=== PATIENT | female | born 1955 | race Caucasian/White ===

== ENCOUNTER 2017-11-18 11:11 | Day surgery (SDC) | payer MEDICAID ==
[2017-11-18 11:33] VITALS: BP 136/99
[2017-11-18] MEDS ORDERED: normal saline 1000ml 1,000 ML IV SCH (11:40)
[2017-11-18] MEDS ORDERED: ONDA4TAB9 SL (12:08)
[2017-11-18] MEDS ORDERED: ESOM20CA PO (12:08)
[2017-11-18] MEDS ORDERED: LISI10TA4 PO (12:08)
[2017-11-18] MEDS ORDERED: FURO40TA4 PO (12:08)
[2017-11-18] MEDS ORDERED: METO5TAB98 PO (12:08)
[2017-11-18] MEDS ORDERED: SENN1TAB5 PO (12:08)
[2017-11-18] MEDS ORDERED: MSC15T PO (12:08)
[2017-11-18] MEDS ORDERED: POTA-82 PO (12:08)
[2017-11-18] MEDS ORDERED: MORP60TA32 PO (12:08)
[2017-11-18] MEDS ORDERED: CARV3.12 PO (12:08)
[2017-11-18] MEDS ORDERED: SCOP1PAT16 TD (12:08)
[2017-11-18 12:15] LABS: BASOPHILS % (AUTO) 0.2 % (0-1); EOSINOPHILS % (AUTO) 0.5 % (0-6); HEMATOCRIT 25.9 % (35.0-45.0); HEMOGLOBIN 8.6 g/dl (12.0-16.0); LYMPHOCYTES # (AUTO) 0.7 X10'3 (1.1-4.8); LYMPHOCYTES % (AUTO) 14.4 % (21-51); MEAN CORPUSCULAR HEMOGLOBIN 32.3 PG (27.0-31.0); MEAN CORPUSCULAR HGB CONC 33.2 % (33.0-36.5); MEAN CORPUSCULAR VOLUME 97.3 FL (78-98); MEAN PLATELET VOLUME 6.6 FL (7.4-10.4); MONOCYTES # (AUTO) 0.6 X10'3 (0-0.9); NEUTROPHILS # (AUTO) 3.5 X10'3 (1.8-7.7); NEUTROPHILS % (AUTO) 71.9 % (42-75); PLATELET COUNT 223 X10'3 (140-440); RED BLOOD COUNT 2.67 X10'6 (4.20-5.60); RED CELL DISTRIBUTION WIDTH 17.6 % (11.5-14.5); WHITE BLOOD COUNT 4.8 X10'3 (4.5-11.0)
[2017-11-18 13:45] VITALS: BP 149/96
[2017-11-18 13:55] VITALS: BP 156/99
[2017-11-18 14:11] VITALS: BP 152/89
== END 2017-11-18 15:30 | disposition home or self-care (01) ==
LOC: SSTAY O 11:11
PROVIDERS: ATTEND Radiology Diagnostic Radiology
DX: R18.8 Other ascites (principal); I10 Essential (primary) hypertension; Z53.8 Procedure and treatment not carried out for other reasons; Z79.891 Long term (current) use of opiate analgesic; Z96.651 Presence of right artificial knee joint; Z85.43 Personal history of malignant neoplasm of ovary; Z85.09 Personal history of malignant neoplasm of other digestive organs; Z79.899 Other long term (current) drug therapy
CPT/HCPCS: 36415; 85025; J7030